=== PATIENT | female | born 1955 | race Caucasian/White ===

== ENCOUNTER 2024-03-25 21:00 | Emergency (ER) | payer MEDICARE, OTHER ==
[~2024-03-25] VITALS: Ht 152.4 cm; Wt 95.0 kg
[~2024-03-25 21:00] MED LIST: AMLODIPINE BESYL5 MG PO; ASPIRINCHW 81MG PO; CHLORTHALIDONE25 MG PO; COZAAR100 MG PO; CRESTOR10 MG PO; CYMBALTA30 MG PO; IRON325 M1 PO; METFORMIN500 M2 PO; MOUNJARO; NITROGLYCERIN0.4 MG PO; PROTONIX40 M2 PO; SYNJARDY XR 25-1 TAB; VITAMIN B-121000 MCG PO; VITAMIN D-32000 UNI1 PO
[2024-03-25 22:01] LABS: BASO% 0.3 % (0-3); EOS% 2.7 % (0-8); HEMOGLOBIN 13.5 g/dl (12.0-16.0); IMMATURE GRANULOCYTES 0.2 % (0.0-5.0); LYMPH% 19.2 % (15-41); MEAN CELL VOLUME 93.3 fL CALC (80.0-100.0); MEAN CORPUSCULAR HGB 29.3 pG CALC (26.0-32.0); MEAN CORPUSCULAR HGB CONC 31.4 g/dL CAL (32.0-36.0); MONO% 13.1 % (2-13); NEUT# 3.83 thou/uL (2.00-7.15); NEUT% 64.5 % (42-76); RED BLOOD COUNT 4.61 mill/uL (4.20-5.60); RED CELL DISTRI WIDTH 15.3 % (11.5-15.5)
[2024-03-25 22:50] VITALS: BP 138/78
== END 2024-03-25 22:50 | disposition home or self-care (01) ==
LOC: ED 21:00
PROVIDERS: Family Medicine
DX: J10.1 Influenza due to other identified influenza virus with other respiratory manifestations (principal); I10 Essential (primary) hypertension; E11.9 Type 2 diabetes mellitus without complications; I25.2 Old myocardial infarction; E78.5 Hyperlipidemia, unspecified; G47.30 Sleep apnea, unspecified; Z95.5 Presence of coronary angioplasty implant and graft; Z79.84 Long term (current) use of oral hypoglycemic drugs; Z20.822 Contact with and (suspected) exposure to COVID-19